=== PATIENT | female | born 1950 | race American Indian/Alaskan Native ===

== ENCOUNTER 2017-09-25 18:32 | Emergency (ER) | payer MEDICARE, MEDICAID ==
[2017-09-25 19:30] VITALS: BP 89/45
[2017-09-25] MEDS ORDERED: Sodium Chloride 0.9% 1,000 ML IV ONE (21:31)
[2017-09-25] MEDS ORDERED: Ondansetron 4 MG/2 ML SDV IV ONE (21:31)
--- NOTE | 2017-09-25 21:35 | EDM.PDOC ---
ED HPI GENERAL MEDICAL PROBLEM - General Chief Complaint: Gastrointestinal Problem Stated Complaint: VOMITING [id number] Time Seen by Provider: 09/25/17 21:33 Source of Information: Reports: Patient History Limitations: Reports: No Limitations - History of Present Illness INITIAL COMMENTS - FREE TEXT/NARRATIVE: c/o N-V-D since , saw clinic tuesday told if worse to come to ER. it's worse tonight, unable to eat due to V & D Epigastric Pain Score (Numeric/FACES): 8 - Related Data Allergies Allergy/AdvReac Type Severity Reaction Status Date / Time morphine Allergy SICK Verified 06/29/16 15:47 Home Meds: Home Meds Albuterol [Ventolin HFA] 2 puff INH Q6H PRN 08/13/13 [History] Aspirin [[place] Aspirin] 81 mg PO DAILY 08/13/13 [History] Levothyroxine Sodium [Synthroid] 50 mcg PO DAILY 08/13/13 [History] metFORMIN [Glucophage] 1,000 mg PO BIDM 08/13/13 [History] Ibuprofen 1 tab PO .Q8H PRN 04/15/16 [History] Lisinopril [Prinivil] 1 tab PO DAILY 04/15/16 [History] atorvaSTATin [Lipitor] 1 tab PO BEDTIME 04/15/16 [History] glipiZIDE [Glipizide Xl] 1 tab PO DAILY 04/15/16 [History] Past Medical History HEENT History: Reports: Impaired Vision, Other (See Below) Other HEENT History: astigmatism,myopia, presbyopia,nuclear sclerosis Cardiovascular History: Reports: Afib, High Cholesterol, Hypertension Respiratory History: Reports: Other (See Below) Other Respiratory History: reactive airway disease Other Gastrointestinal History: Esophageal study completed this date with narrowing in lower esophagus, but no other concerns. No aspiration of bolus. Retching noted. Patient reported multiple days of diarrhea prior to aspiration incident. Reports nausea with intake this date. Regular diet recommended. 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: Endocrine/Metabolic History: Reports: Diabetes, Type II, Hypothyroidism - Infectious Disease History Infectious Disease History: Reports: Chicken Pox - Past Surgical History GI Surgical History: Reports: Cholecystectomy Social & Family History - Tobacco Use Smoking Status *Q: Never Smoker Years of Tobacco use: 22 Packs/Tins Daily: 1 Month Tobacco Last Used: 08/29/1992 Second Hand Smoke Exposure: No - Caffeine Use Caffeine Use: Reports: Coffee - Alcohol Use Days Per Week of Alcohol Use: 0 - Recreational Drug Use Recreational Drug Use: No ED ROS GENERAL - Review of Systems Review Of Systems: ROS reveals no pertinent complaints other than HPI. ED EXAM, GI/ABD - Physical Exam Exam: See Below Exam Limited By: No Limitations General Appearance: Alert, WD/WN, Mild Distress, Moderate Distress, Other ( dsitraught upset tearful) Ears: Hearing Grossly Normal Throat/Mouth: Normal Voice, No Airway Compromise Head: Atraumatic Neck: Non-Tender, Full Range of Motion Respiratory/Chest: No Respiratory Distress Cardiovascular: Regular Rate, Rhythm GI/Abdominal Exam: Tender, Other (periumb area. BS hyper). No: Distended, Guarding, Rigid, Rebound Neurological: Alert, Oriented, Normal Cognition, Normal Gait, No Motor/Sensory Deficits Psychiatric: Tearful Skin Exam: Warm, Dry, Normal Color Lymphatic: No Adenopathy Course - Vital Signs Last Recorded V/S: Last Vital Signs Temp 35.4 C 09/25/17 19:25 Pulse 117 H 09/25/17 19:25 Resp 20 09/25/17 19:25 BP 89/45 L 09/25/17 19:25 Pulse Ox 95 09/25/17 19:25 - Orders/Labs/Meds Orders: Active Orders 24 hr Category Date Time Status Sodium Chloride 0.9% [Normal Saline] 1,000 ml Med 09/25/17 21:31 Active IV .BOLUS Medication Orders Sodium Chloride (Normal Saline) 1,000 mls @ 500 mls/hr IV .BOLUS ONE Stop: 09/25/17 23:30 Last Admin: 09/25/17 21:50 Dose: 500 mls/hr Labs: Laboratory Tests 09/25/17 09/25/17 09/25/17 Range/Units 21:44 21:44 21:44 WBC 13.3 H (5.0-10.0) 10^3/uL RBC 5.05 (4.2-5.4) 10^6/uL Hgb 14.5 D (12.0-16.0) g/dL Hct 45.1 (37.0-47.0) % MCV 89.3 (80-100) fL MCH 28.7 (27.0-34.0) pg MCHC 32.2 L (33.0-35.0) g/dL Plt Count 223 (150-450) 10^3/uL Neut % (Auto) 90.1 H (42.2-75.2) % Lymph % (Auto) 5.2 L (20.5-50.1) % [place] % (Auto) 4.4 (2-8) % Eos % (Auto) 0.2 L (1.0-3.0) % Baso % (Auto) 0.1 (0.0-1.0) % Sodium 135 (135-145) mmol/L Potassium 4.6 (3.6-5.0) mmol/L Chloride 102 (101-111) mmol/L Carbon Dioxide 19.0 L (21.0-31.0) mmol/L Anion Gap 18.6 BUN 46 H D (7-18) mg/dL Creatinine 2.5 H D (0.6-1.3) mg/dL Est Cr Clr Drug Dosing 20.44 mL/min Estimated GFR (MDRD) 19 BUN/Creatinine Ratio 18.40 Glucose 238 H (74-105) mg/dL Lactic Acid 1.5 (0.5-2.2) mmol/L Calcium 8.8 (8.4-10.2) mg/dl Total Bilirubin 0.5 (0.2-1.0) mg/dL AST 38 (10-42) IU/L ALT 54 (10-60) IU/L Alkaline Phosphatase 56 (42-121) IU/L Total Protein 8.2 (6.7-8.2) g/dl Albumin 4.3 (3.2-5.5) g/dl Globulin 3.9 Albumin/Globulin Ratio 1.10 Meds: Medications Generic Name Dose Route Start Last Admin Trade Name Freq PRN Reason Stop Dose Admin Sodium Chloride 1,000 mls @ 500 mls/hr 09/25/17 21:31 09/25/17 21:50 Normal Saline IV 09/25/17 23:30 500 mls/hr .BOLUS ONE Administration Discontinued Medications Generic Name Dose Route Start Last Admin Trade Name Freq PRN Reason Stop Dose Admin Ketorolac Tromethamine 15 mg 09/25/17 22:46 09/25/17 22:58 Toradol IVPUSH 09/25/17 22:47 15 mg ONETIME ONE Administration Ondansetron HCl 4 mg 09/25/17 21:31 09/25/17 21:50 Zofran IV 09/25/17 21:32 4 mg ONETIME ONE Administration - Re-Assessments/Exams Free Text/Narrative Re-Assessment/Exam: 09/25/17 23:30 re-exam; feeling better presently. Departure - Departure Time of Disposition: 23:30 Disposition: Home, Self-Care 01 Condition: Good Clinical Impression: Gastroenteritis, Vomiting, Diarrhea - Discharge Information Instructions: Viral Gastroenteritis, Adult, [id number] Forms: ED Department Discharge Additional Instructions: 1) avoid solid foods next few days 2) have liquids 3) follow up at clinic or recheck as needed rx given; bentyl 10mg bid prn cramps x 12 zofran 4mg ODT bid prn x 6 imodium qid prn - My Orders Last 24 Hours: My Active Orders 09/25/17 21:31 Sodium Chloride 0.9% [Normal Saline] 1,000 ml IV .BOLUS - Assessment/Plan Last 24 Hours: My Active Orders 09/25/17 21:31 Sodium Chloride 0.9% [Normal Saline] 1,000 ml IV .BOLUS
[2017-09-25 22:11] LABS: ANION GAP 18.6
[2017-09-25] MEDS ORDERED: Ketorolac 30 MG/ML SDV IVPUSH ONE (22:46)
== END 2017-09-25 23:38 | disposition home or self-care (01) ==
LOC: DL.ED 18:32
DX: K52.9 Noninfective gastroenteritis and colitis, unspecified (principal); E11.9 Type 2 diabetes mellitus without complications; E03.9 Hypothyroidism, unspecified; Z88.5 Allergy status to narcotic agent; Z79.82 Long term (current) use of aspirin; Z79.84 Long term (current) use of oral hypoglycemic drugs; Z79.899 Other long term (current) drug therapy
CPT/HCPCS: 36415; 74176; 80053; 83605; 85025; 96361; 96374; 96375; 99284; J1885; J2405; J7030

== ENCOUNTER 2019-01-22 14:21 | Emergency (ER) | payer OTHER, MEDICARE ==
[2019-01-22] MEDS ORDERED: Ketorolac 10 MG Tab PO ONE (14:22)
[2019-01-22] MEDS ORDERED: Cyclobenzaprine 10 MG Tab PO ONE (14:22)
[2019-01-22 14:39] VITALS: BP 139/61
--- NOTE | 2019-01-22 14:43 | EDM.PDOC ---
ED HPI GENERAL MEDICAL PROBLEM - General Chief Complaint: Back Pain or Injury Stated Complaint: FELL AT WORK Time Seen by Provider: 01/22/19 14:35 Source of Information: Reports: Patient History Limitations: Reports: No Limitations - History of Present Illness INITIAL COMMENTS - FREE TEXT/NARRATIVE: This 68 yo female patient reports to the ED due to right sided lower back pain due to a fall at work. The patient reports she fell while working this morning at 0630. The patient reports she has had increased pain throughout the day. The patient hit her right side, right forearm and right hand during the fall. The patient as abrasions to her right forearm and a superficial laceration to her right hand near the 2nd MCP joint (palmar aspect). There is no active bleeding at this time. Onset: Today Onset Date: 01/22/19 Onset Time: 06:30 Duration: Constant, Getting Worse Location: Reports: Back (right side lower back) Quality: Reports: Dull Severity: Moderate Improves with: Reports: None Worsens with: Reports: None Context: Reports: Other Associated Symptoms: Reports: No Other Symptoms - Related Data Allergies Allergy/AdvReac Type Severity Reaction Status Date / Time morphine Allergy SICK Verified 01/22/19 14:26 Home Meds: Home Meds Albuterol [Ventolin HFA] 2 puff INH Q6H PRN 08/13/13 [History] Aspirin [[place] Aspirin] 81 mg PO DAILY 08/13/13 [History] Levothyroxine Sodium [Synthroid] 50 mcg PO DAILY 08/13/13 [History] metFORMIN [Glucophage] 1,000 mg PO BIDM 08/13/13 [History] Ibuprofen 1 tab PO .Q8H PRN 04/15/16 [History] Lisinopril [Prinivil] 1 tab PO DAILY 04/15/16 [History] atorvaSTATin [Lipitor] 1 tab PO BEDTIME 04/15/16 [History] glipiZIDE [Glipizide Xl] 1 tab PO DAILY 04/15/16 [History] Omeprazole 40 mg PO DAILY 01/22/19 [History] Past Medical History HEENT History: Reports: Impaired Vision, Other (See Below) Other HEENT History: astigmatism,myopia, presbyopia,nuclear sclerosis Cardiovascular History: Reports: Afib, High Cholesterol, Hypertension Respiratory History: Reports: Other (See Below) Other Respiratory History: reactive airway disease Other Gastrointestinal History: Esophageal study completed this date with narrowing in lower esophagus, but no other concerns. No aspiration of bolus. Retching noted. Patient reported multiple days of diarrhea prior to aspiration incident. Reports nausea with intake this date. Regular diet recommended. 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 ED EXAM,LOWER BACK PAIN/INJURY - Physical Exam Exam: See Below Exam Limited By: No Limitations General Appearance: Alert, WD/WN, Moderate Distress Eye Exam: Bilateral Eye: EOMI, Normal Inspection, PERRL Ears: Normal External Exam, Normal Canal, Hearing Grossly Normal, Normal TMs Nose: Normal Inspection, Normal Mucosa, No Blood Throat/Mouth: Normal Inspection, Normal Lips, Normal Teeth, Normal Gums, Normal Oropharynx, Normal Voice, No Airway Compromise Head: Atraumatic, Normocephalic Neck: Normal Inspection, Supple, Non-Tender, Full Range of Motion Respiratory/Chest: No Respiratory Distress, Lungs Clear, Normal Breath Sounds, No Accessory Muscle Use, Chest Non-Tender Cardiovascular: Normal Peripheral Pulses, Regular Rate, Rhythm, No Edema, No Gallop, No JVD, No Murmur, No Rub GI/Abdominal: Normal Bowel Sounds, Soft, Non-Tender, No Organomegaly, No Distention, No Abnormal Bruit, No Mass (Female) Exam: Deferred Rectal (Female) Exam: Deferred Back Exam: Paraspinal Tenderness (right lower back), Vertebral Tenderness ( lower back) Extremities: Arm Pain (abrasions to the right forearm and a small superficial laceration to her right hand. No current bleeding), Leg Pain (The patient reports increased knee pain in her right knee (with a history of a partial tear in the same knee)) Neurological: Alert, Normal Mood/Affect, Normal Dorsiflexion, CN II-XII Intact, Normal Plantar Flexion, Normal Gait, Normal Reflexes, No Motor/Sensory Deficits , Oriented x 3 Psychiatric: Normal Affect, Normal Mood Skin Exam: Warm, Dry, Intact, Normal Color, No Rash Lymphatic: No Adenopathy Course - Vital Signs Last Recorded V/S: Last Vital Signs Temp 36.6 C 01/22/19 14:24 Pulse 85 01/22/19 14:24 Resp 18 01/22/19 14:24 BP 139/61 01/22/19 14:24 Pulse Ox 95 01/22/19 14:24 - Orders/Labs/Meds Orders: Active Orders 24 hr Category Date Time Status Lumbar Spine 2 or 3V [CR] Urgent Exams 01/22/19 14:37 Ordered Meds: Medications Discontinued Medications Generic Name Dose Route Start Last Admin Trade Name Corey PRN Reason Stop Dose Admin Ketorolac Tromethamine 30 mg 01/22/19 15:17 Toradol IM 01/22/19 15:18 ONETIME ONE Departure - Departure Time of Disposition: 15:23 Disposition: Home, Self-Care 01 Condition: Fair Clinical Impression: Strain of muscle, fascia and tendon of lower back, initial encounter - Discharge Information *PRESCRIPTION DRUG MONITORING PROGRAM REVIEWED*: Not Applicable *COPY OF PRESCRIPTION DRUG MONITORING REPORT IN PATIENT ALFRED: Not Applicable Instructions: Muscle Strain, [id number] Forms: ED Department Discharge Care Plan Goals: The patient was advised of the examination and x-ray results during the visit. The patient was given an injection of Toradol (30 mg) while in the ED. The patient was discharged with Toradol (10 mg) #1 to take 1 by mouth at 9 pm tonight and Flexeril (10 mg) #1 to take at bedtime. The patient was also discharged with scripts for Toradol (10 mg) #20 to take 1 by mouth every 6 hours and Flexeril (10 mg) #10 to take 1 by mouth at bedtime as needed. If the patient has any additional symptoms or concerns, the patient should either return to the emergency department or visit his primary care facility. - My Orders Last 24 Hours: My Active Orders 01/22/19 14:37 Lumbar Spine 2 or 3V [CR] Urgent - Assessment/Plan Last 24 Hours: My Active Orders 01/22/19 14:37 Lumbar Spine 2 or 3V [CR] Urgent
[2019-01-22] MEDS ORDERED: Ketorolac 30 MG/ML SDV IM ONE (15:17)
[2019-01-22] MEDS ORDERED: Ketorolac 10 MG Tab ONE (15:23)
[2019-01-22] MEDS ORDERED: Cyclobenzaprine 10 MG Tab ONE (15:23)
== END 2019-01-22 15:45 | disposition home or self-care (01) ==
LOC: DL.ED 14:21
DX: S61.411A Laceration without foreign body of right hand, initial encounter (principal); S39.012A Strain of muscle, fascia and tendon of lower back, initial encounter; S50.811A Abrasion of right forearm, initial encounter; I10 Essential (primary) hypertension; I48.91 Unspecified atrial fibrillation; E11.9 Type 2 diabetes mellitus without complications; E03.9 Hypothyroidism, unspecified; Z90.49 Acquired absence of other specified parts of digestive tract; Z79.82 Long term (current) use of aspirin; Z79.84 Long term (current) use of oral hypoglycemic drugs; Z79.899 Other long term (current) drug therapy; Z88.5 Allergy status to narcotic agent; W01.198A Fall on same level from slipping, tripping and stumbling with subsequent striking against other object, initial encounter; Y99.0 Civilian activity done for income or pay
CPT/HCPCS: 72100; 96372; 99283; J1885; A9270-GY

== ENCOUNTER 2019-08-18 22:56 | Emergency (ER) | payer MEDICAID, MEDICARE ==
[2019-08-18 23:08] VITALS: BP 143/89; PULSE 100
--- NOTE | 2019-08-18 23:27 | EDM.PDOC ---
ED HPI GENERAL MEDICAL PROBLEM - General Chief Complaint: Lower Extremity Injury/Pain Stated Complaint: LEG PAIN, STIFF AND CRAMPING Time Seen by Provider: 08/18/19 23:23 Source of Information: Reports: Patient History Limitations: Reports: No Limitations - History of Present Illness INITIAL COMMENTS - FREE TEXT/NARRATIVE: sudden onset bilateral leg cramps going down to her ankles lasting 15 minutes and now both legs feel weak. denies recent injury. - Related Data Allergies Allergy/AdvReac Type Severity Reaction Status Date / Time morphine Allergy SICK Verified 08/18/19 23:08 Home Meds: Home Meds Albuterol [Ventolin HFA] 2 puff INH Q6H PRN 08/13/13 [History] Aspirin [[place] Aspirin] 81 mg PO DAILY 08/13/13 [History] Levothyroxine Sodium [Synthroid] 50 mcg PO DAILY 08/13/13 [History] metFORMIN [Glucophage] 1,000 mg PO BIDM 08/13/13 [History] Ibuprofen 1 tab PO .Q8H PRN 04/15/16 [History] atorvaSTATin [Lipitor] 1 tab PO BEDTIME 04/15/16 [History] glipiZIDE [Glipizide Xl] 1 tab PO DAILY 04/15/16 [History] lisinopriL [Prinivil] 1 tab PO DAILY 04/15/16 [History] Omeprazole 40 mg PO DAILY 01/22/19 [History] Past Medical History HEENT History: Reports: Impaired Vision, Other (See Below) Other HEENT History: astigmatism,myopia, presbyopia,nuclear sclerosis Cardiovascular History: Reports: Afib, High Cholesterol, Hypertension Respiratory History: Reports: Other (See Below) Other Respiratory History: reactive airway disease Gastrointestinal History: Reports: GERD Other Gastrointestinal History: Esophageal study completed this date with narrowing in lower esophagus, but no other concerns. No aspiration of bolus. Retching noted. Patient reported multiple days of diarrhea prior to aspiration incident. Reports nausea with intake this date. Regular diet recommended. 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: Neurological History: Reports: None Psychiatric History: Reports: None Endocrine/Metabolic History: Reports: Diabetes, Type II, Hypothyroidism Hematologic History: Reports: None Immunologic History: Reports: None Oncologic (Cancer) History: Reports: None Dermatologic History: Reports: None - Infectious Disease History Infectious Disease History: Reports: Chicken Pox - Past Surgical History Head Surgeries/Procedures: Reports: None GI Surgical History: Reports: Cholecystectomy Musculoskeletal Surgical History: Reports: Other (See Below) Social & Family History - Family History Family Medical History: Noncontributory - Tobacco Use Smoking Status *Q: Never Smoker - Caffeine Use Caffeine Use: Reports: Coffee, Tea - Recreational Drug Use Recreational Drug Use: No Review of Systems - Review of Systems Review Of Systems: Comprehensive ROS is negative, except as noted in HPI. ED EXAM, GENERAL - Physical Exam Exam: See Below Exam Limited By: No Limitations General Appearance: Alert, WD/WN, Anxious, Mild Distress Ears: Hearing Grossly Normal Throat/Mouth: Normal Voice, No Airway Compromise Head: Atraumatic Neck: Non-Tender, Full Range of Motion Respiratory/Chest: No Respiratory Distress Cardiovascular: Regular Rate, Rhythm GI/Abdominal: Soft, Non-Tender Extremities: Normal Inspection, Non-Tender, No Pedal Edema (NV wnl), Other Neurological: Alert, Oriented, Normal Cognition, No Motor/Sensory Deficits Psychiatric: Normal Affect, Normal Mood Skin Exam: Warm, Dry, Normal Color Lymphatic: No Adenopathy Course - Vital Signs Last Recorded V/S: Last Vital Signs Temp 36.3 C 08/18/19 23:02 Pulse 100 08/18/19 23:02 Resp 20 08/18/19 23:02 BP 143/89 H 08/18/19 23:02 Pulse Ox 96 08/18/19 23:02 - Orders/Labs/Meds Orders: Active Orders 24 hr Category Date Time Status Potassium Chloride [Klor-Con 10] Med 08/19/19 00:24 Once 40 meq PO ONETIME ONE Labs: Laboratory Tests 08/18/19 08/18/19 Range/Units 23:29 23:29 WBC 7.9 (5.0-10.0) 10^3/uL RBC 4.50 (4.2-5.4) 10^6/uL Hgb 13.2 (12.0-16.0) g/dL Hct 39.9 (37.0-47.0) % MCV 88.7 (80-100) fL MCH 29.3 (27.0-34.0) pg MCHC 33.1 (33.0-35.0) g/dL Plt Count 272 (150-450) 10^3/uL Neut % (Auto) 55.2 (42.2-75.2) % Lymph % (Auto) 31.8 (20.5-50.1) % [place] % (Auto) 8.8 H (2-8) % Eos % (Auto) 4.1 H (1.0-3.0) % Baso % (Auto) 0.1 (0.0-1.0) % Sodium 136 (135-145) mmol/L Potassium 3.5 L (3.6-5.0) mmol/L Chloride 103 (101-111) mmol/L Carbon Dioxide 22.0 (21.0-31.0) mmol/L Anion Gap 14.5 BUN 22 H (7-18) mg/dL Creatinine 0.8 D (0.6-1.3) mg/dL Est Cr Clr Drug Dosing 62.13 mL/min Estimated GFR (MDRD) > 60 BUN/Creatinine Ratio 27.50 Glucose 121 H (74-105) mg/dL Calcium 8.8 (8.4-10.2) mg/dl Magnesium 1.3 L (1.8-2.5) mg/dL Total Bilirubin 0.5 (0.2-1.0) mg/dL AST 20 (10-42) IU/L ALT 13 (10-60) IU/L Alkaline Phosphatase 77 (42-121) IU/L Total Protein 7.5 (6.7-8.2) g/dl Albumin 4.0 (3.2-5.5) g/dl Globulin 3.5 Albumin/Globulin Ratio 1.14 Meds: Medications Discontinued Medications Generic Name Dose Route Start Last Admin Trade Name Zionq PRN Reason Stop Dose Admin Magnesium Oxide 500 mg 08/19/19 00:21 Magnesium Oxide PO 08/19/19 00:22 ONETIME ONE - Re-Assessments/Exams Free Text/Narrative Re-Assessment/Exam: 08/19/19 00:25 results discussed with pt. Departure - Departure Time of Disposition: 00:25 Disposition: Home, Self-Care 01 Condition: Good Clinical Impression: Hypomagnesemia syndrome, Hypokalemia - Discharge Information Forms: ED Department Discharge Additional Instructions: 1) eat foods with potassium and magnesium 2) follow up at clinic Sepsis Event Note - Evaluation Sepsis Screening Result: No Definite Risk - Focused Exam Vital Signs: Vital Signs Temp Pulse Resp BP Pulse Ox 08/18/19 23:02 36.3 C 100 20 143/89 H 96 Date Exam was Performed: 08/19/19 Time Exam was Performed: 00:25 - My Orders Last 24 Hours: My Active Orders 08/19/19 00:24 Potassium Chloride [Klor-Con 10] 40 meq PO ONETIME ONE - Assessment/Plan Last 24 Hours: My Active Orders 08/19/19 00:24 Potassium Chloride [Klor-Con 10] 40 meq PO ONETIME ONE
[2019-08-18 23:52] LABS: ANION GAP 14.5; CHLORIDE,CL 103 mmol/L (101-111); SODIUM,NA 136 mmol/L (135-145)
[2019-08-19] MEDS: Potassium Chloride 10 MEQ Tab.ER PO ONE (00:32)
== END 2019-08-19 00:48 | disposition home or self-care (01) ==
LOC: DL.ED 22:56
DX: R25.2 Cramp and spasm (principal); R53.1 Weakness
CPT/HCPCS: 36415; 80053; 83735; 85025; 99284; A9270

== ENCOUNTER 2024-06-06 18:55 | Emergency (ER) | payer MEDICARE ==
[2024-06-06 19:23] VITALS: BP 160/76; PULSE 84
[2024-06-06] MEDS: Dexamethasone 4 MG/ML SDV IM ONE (19:28)
[2024-06-06] MEDS: diphenhydrAMINE 25 MG Tab PO ONE (19:28)
[2024-06-06] MEDS: Famotidine 20 MG Tab PO ONE (19:28)
[2024-06-06] MEDS: Diphtheria,Pertussis(Acell),Tetanus Vaccine 0.5 ML Syringe IM ONE (19:29)
== END 2024-06-06 20:08 | disposition home or self-care (01) ==
LOC: DL.ED 18:55
DX: T63.441A Toxic effect of venom of bees, accidental (unintentional), initial encounter (principal); I10 Essential (primary) hypertension; E78.00 Pure hypercholesterolemia, unspecified; K21.9 Gastro-esophageal reflux disease without esophagitis; E11.9 Type 2 diabetes mellitus without complications; E03.9 Hypothyroidism, unspecified; Z90.49 Acquired absence of other specified parts of digestive tract; Z79.899 Other long term (current) drug therapy; Z79.82 Long term (current) use of aspirin; Z79.84 Long term (current) use of oral hypoglycemic drugs; Z79.890 Hormone replacement therapy; Z88.5 Allergy status to narcotic agent; Z23 Encounter for immunization
CPT/HCPCS: 82947; 90471; 90715; 96372; 99283; A9270; J1100

== ENCOUNTER 2024-06-15 16:01 | Emergency (ER) | payer MEDICARE ==
[2024-06-15 16:20] VITALS: BP 158/60; PULSE 87
== END 2024-06-15 16:26 | disposition home or self-care (01) ==
LOC: DL.ED 16:01
DX: S01.81XA Laceration without foreign body of other part of head, initial encounter (principal); I10 Essential (primary) hypertension; E78.00 Pure hypercholesterolemia, unspecified; K21.9 Gastro-esophageal reflux disease without esophagitis; E11.9 Type 2 diabetes mellitus without complications; E03.9 Hypothyroidism, unspecified; Z90.49 Acquired absence of other specified parts of digestive tract; Z79.899 Other long term (current) drug therapy; Z79.82 Long term (current) use of aspirin; Z79.890 Hormone replacement therapy; Z88.5 Allergy status to narcotic agent; W18.02XA Striking against glass with subsequent fall, initial encounter
CPT/HCPCS: 12011; 99282

== ENCOUNTER 2024-11-17 15:32 | Emergency (ER) | payer MEDICAID, MEDICARE ==
[2024-11-17 17:30] VITALS: BP 144/70; PULSE 77
== END 2024-11-17 17:27 | disposition home or self-care (01) ==
LOC: DL.ED 15:32
DX: M79.661 Pain in right lower leg (principal); I10 Essential (primary) hypertension; I48.91 Unspecified atrial fibrillation; E11.9 Type 2 diabetes mellitus without complications; E78.00 Pure hypercholesterolemia, unspecified; E03.9 Hypothyroidism, unspecified; K21.9 Gastro-esophageal reflux disease without esophagitis; Z79.899 Other long term (current) drug therapy; Z79.82 Long term (current) use of aspirin; Z79.890 Hormone replacement therapy; Z79.84 Long term (current) use of oral hypoglycemic drugs; Z79.1 Long term (current) use of non-steroidal anti-inflammatories (NSAID); Z88.8 Allergy status to other drugs, medicaments and biological substances; Z86.16 Personal history of COVID-19; Z90.49 Acquired absence of other specified parts of digestive tract; W22.8XXA Striking against or struck by other objects, initial encounter
CPT/HCPCS: 73590-RT; 99283

== ENCOUNTER 2024-12-30 14:02 | Emergency (ER) | payer MEDICARE, MEDICAID ==
[2024-12-30 14:58] LABS: BASOPHILS PERCENT AUTO 0.2 % (0.0-1.0); HEMOGLOBIN 13.1 g/dL (12.0-16.0); LYMPHOCYTES PERCENT AUTO 22.8 % (20.5-50.1); MEAN CORPUSCULAR HEMOGLOBIN 29.8 pg (27.0-34.0); MEAN CORPUSCULAR VOLUME 93.4 fL (80-100); MONOCYTES PERCENT AUTO 7.1 % (2-8); NEUTROPHILS PERCENT AUTO 62.9 % (42.2-75.2); PLATELET COUNT,PLT 246 10^3/uL (150-450); RED BLOOD CELL COUNT 4.39 10^6/uL (4.2-5.4); WHITE BLOOD CELL COUNT,WBC 8.4 10^3/uL (5.0-10.0)
[2024-12-30 15:21] LABS: ALANINE AMINOTRANSFERASE,ALT 16 U/L (14-59); ALBUMIN 3.6 g/dL (3.4-5.0); ALKALINE PHOSPHATASE 93 U/L (46-116); ANION GAP 13.4 mEq/L (7-13); ASPARTATE AMNIOTRANSFERASE,AST 5 U/L (15-37); BILIRUBIN TOTAL 0.3 mg/dL (0.2-1.0); BLOOD UREA NITROGEN,BUN 20 mg/dL (7-18); BUN/CREATININE RATIO 21.1 (No establ ref range); CARBON DIOXIDE,CO2 28 mmol/L (21-32); CHLORIDE,CL 107 mmol/L (98-107); CREATININE 0.95 mg/dL (0.55-1.02); GLUCOSE RANDOM 103 mg/dL (70-99); MAGNESIUM 1.5 mg/dL (1.8-2.4); POTASSIUM,K 4.4 mmol/L (3.5-5.1); PROTEIN TOTAL,TP 7.3 g/dL (6.4-8.2); SODIUM,NA 144 mmol/L (136-145)
[2024-12-30 15:27] LABS: ESTIMATED GFR 62 mL/min (>=60)
[2024-12-30 15:34] VITALS: BP 148/61; PULSE 89
== END 2024-12-30 16:53 | disposition home or self-care (01) ==
LOC: DL.ED 14:02
DX: M25.511 Pain in right shoulder (principal); I48.91 Unspecified atrial fibrillation; I10 Essential (primary) hypertension; E11.9 Type 2 diabetes mellitus without complications; E78.00 Pure hypercholesterolemia, unspecified; Z88.5 Allergy status to narcotic agent; Z79.51 Long term (current) use of inhaled steroids; Z79.82 Long term (current) use of aspirin; Z79.890 Hormone replacement therapy; Z79.84 Long term (current) use of oral hypoglycemic drugs; Z79.899 Other long term (current) drug therapy; Z86.16 Personal history of COVID-19; W18.39XA Other fall on same level, initial encounter; Y93.89 Activity, other specified
CPT/HCPCS: 36415; 70450; 73200-RT; 80053; 83735; 84484; 85025; 99283; 99284